=== PATIENT | female | born 1995 | race Caucasian/White ===

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

== ENCOUNTER 2017-01-08 21:51 | Emergency (ER) | payer OTHER ==
[2017-01-08 22:31] VITALS: BP 169/98
== END 2017-01-09 00:21 | disposition home or self-care (01) ==
LOC: ED 21:51
DX: S63.617A Unspecified sprain of left little finger, initial encounter (principal); Z91.040 Latex allergy status; W23.0XXA Caught, crushed, jammed, or pinched between moving objects, initial encounter; Y93.67 Activity, basketball; Y99.8 Other external cause status; Y92.310 Basketball court as the place of occurrence of the external cause